=== PATIENT | female | born 1980 | race African-American/Black ===

== ENCOUNTER 2022-06-01 02:45 | Inpatient (IN) | payer MEDICAID, OTHER ==
[~2022-06-01] VITALS: Ht 167.6 cm; Wt 61.3 kg
[2022-06-01] MEDS ORDERED: ONDANSETRON HCL 4MG/2ML INJ IV STA (05:06)
[2022-06-01] MEDS ORDERED: MORPHINE SULFATE 4 MG/ML CPJ (NOT FOR IM USE) IV STA (05:06)
[2022-06-01] MEDS ORDERED: SODIUM CHLORIDE 0.9% 1,000 ML IV ONE (05:45)
[2022-06-01 06:25] LABS: BASOPHILS % 0.5 % (0.0-2.0); EOSINOPHILS % 0.4 % (0.0-5.0); HEMATOCRIT. 48.9 % (36.0-48.0); HEMOGLOBIN. 16.8 g/dL (12.0-16.0); LYMPHOCYTES % 29.8 % (20.0-50.0); MEAN CORPUSCULAR HEMOGLOBIN 34.6 pg (28.0-32.0); MEAN CORPUSCULAR VOLUME 100.5 fL (81.0-99.0); MEAN PLATELET VOLUME 9.2 fl (7.4-10.4); MONOCYTES % 10.7 % (2.0-8.0); NEUTROPHILS % 58.6 % (40.0-76.0); PLATELET 468 x1000/uL (130-400); RED BLOOD CELL COUNT 4.86 mill/uL (4.2-5.4); RED CELL DISTRIBUTION WIDTH 15.5 % (11.6-14.6)
[2022-06-01 06:33] LABS: CLARITY URINE CLOUDY (CLEAR); COLOR URINE DARK YELLOW (YELLOW); KETONES URINE 1+ (NEGATIVE); LEUKOCYTE ESTERASE URINE 1+ (NEGATIVE); NITRITE URINE NEGATIVE (NEGATIVE); OCCULT BLOOD URINE 2+ (NEGATIVE); PROTEIN URINE 2+ (NEGATIVE); SPECIFIC GRAVITY URINE 1.033 (1.005-1.030)
[2022-06-01 06:38] LABS: CHLORIDE 88 mEq/L (98-107); HCG SCREEN NEGATIVE
[2022-06-01] MEDS ORDERED: CEFTRIAXONE 1 G PREMIX 50 ML IV ONE (10:15)
[2022-06-01] MEDS ORDERED: POTASSIUM CHLORIDE INJ 40 MEQ in DEXT 5% WATER 250 ML IV ONE (12:15)
[2022-06-01] MEDS: KCL 20MEQ/100ML X 2 FOR TOTAL KCL 40MEQ/200ML IV SCH (12:27)
[2022-06-01] MEDS: SODIUM CHLORIDE 0.9% 1,000 ML IV SCH ×2 (12:28→20:15)
[2022-06-01] MEDS ORDERED: ACETAMINOPHEN 325MG TABLET PO PRN (12:45)
[2022-06-01] MEDS ORDERED: IPRATROPIUM/ALBUTEROL 0.5-3(2.5)MG/3ML NEB HHN PRN (12:45)
[2022-06-01] MEDS ORDERED: CLONIDINE 0.1MG TABLET PO PRN (12:45)
[2022-06-01] MEDS ORDERED: DIPHENHYDRAMINE 50MG/ML VIAL IV PRN (12:45)
[2022-06-01] MEDS ORDERED: ONDANSETRON HCL 4MG/2ML INJ IV PRN (12:45)
[2022-06-01] MEDS ORDERED: CEFTRIAXONE 1 G PREMIX 50 ML IV SCH (12:45)
[2022-06-01 15:05] VITALS: BP 109/74
[2022-06-01 15:14] LABS: PHOSPHORUS 3.1 mg/dL (2.5-4.9)
[2022-06-01 15:44] VITALS: BP 109/74
[2022-06-01] MEDS: MORPHINE SULFATE 2 MG/ML CPJ (NOT FOR IM USE) IV PRN ×2 (16:32→23:40)
[2022-06-01 20:00] VITALS: BP 139/79
[2022-06-01] MEDS ORDERED: NALOXONE HCL 0.4MG/ML VIAL IV PRN (20:00)
[2022-06-02] VITALS: BP 107/64
[2022-06-02 04:00] VITALS: BP 94/55
[2022-06-02] MEDS: SODIUM CHLORIDE 0.9% 1,000 ML IV SCH ×3 (04:15→21:00)
[2022-06-02 07:20] LABS: CHLORIDE 98 mEq/L (98-107)
[2022-06-02 07:24] LABS: HEMATOCRIT. 43.4 % (36.0-48.0); HEMOGLOBIN. 14.5 g/dL (12.0-16.0); MEAN CORPUSCULAR HEMOGLOBIN 33.9 pg (28.0-32.0); MEAN CORPUSCULAR VOLUME 101.7 fL (81.0-99.0); MEAN PLATELET VOLUME 8.9 fl (7.4-10.4); PLATELET 399 x1000/uL (130-400); RED BLOOD CELL COUNT 4.26 mill/uL (4.2-5.4); RED CELL DISTRIBUTION WIDTH 15.1 % (11.6-14.6)
[2022-06-02 08:00] VITALS: BP 116/71
[2022-06-02 10:56] LABS: PLATELET ESTIMATE NORMAL
[2022-06-02 12:00] VITALS: BP 119/76
[2022-06-02] MEDS ORDERED: KCL 20MEQ/100ML PREMIX 100 ML IV SCH (12:00)
[2022-06-02] MEDS ORDERED: LIDOCAINE HCL/PF 1% 10 MG/ML 5ML VIAL ONE (12:44)
[2022-06-02] MEDS: KCL 20MEQ/100ML X 2 FOR TOTAL KCL 40MEQ/200ML IV SCH (14:02)
[2022-06-02 16:00] VITALS: BP 101/63
[2022-06-02] MEDS: CEFTRIAXONE 1,000 MG in DEXTROSE 5% WATER 50 ML IV SCH (17:55)
[2022-06-02 20:00] VITALS: BP 115/76
[2022-06-03] VITALS: BP 105/67
[2022-06-03 04:00] VITALS: BP 115/78
[2022-06-03 07:09] LABS: BASOPHILS % 0.2 % (0.0-2.0); HEMATOCRIT. 33.4 % (36.0-48.0); HEMOGLOBIN. 11.5 g/dL (12.0-16.0); LYMPHOCYTES % 7.7 % (20.0-50.0); MEAN CORPUSCULAR HEMOGLOBIN 34.3 pg (28.0-32.0); MEAN CORPUSCULAR VOLUME 99.9 fL (81.0-99.0); MEAN PLATELET VOLUME 9.4 fl (7.4-10.4); NEUTROPHILS % 84.1 % (40.0-76.0); PLATELET 304 x1000/uL (130-400); RED BLOOD CELL COUNT 3.34 mill/uL (4.2-5.4); RED CELL DISTRIBUTION WIDTH 15.3 % (11.6-14.6)
[2022-06-03 08:00] VITALS: BP 117/78
[2022-06-03 08:05] LABS: CHLORIDE 99 mEq/L (98-107)
[2022-06-03 09:11] LABS: ANTI-NUCLEAR ANTIBODIES DIRECT Negative (Negative)
[2022-06-03] MEDS ORDERED: POTASSIUM CHLORIDE 20MEQ TABLET SR PO NR (10:15)
[2022-06-03] MEDS: SODIUM CHLORIDE 0.9% 1,000 ML IV SCH ×2 (11:05→20:45)
[2022-06-03 12:00] VITALS: BP 127/76
[2022-06-03 16:00] VITALS: BP 108/73
[2022-06-03] MEDS: CEFTRIAXONE 1,000 MG in DEXTROSE 5% WATER 50 ML IV SCH (18:06)
[2022-06-03 20:00] VITALS: BP 119/77
[2022-06-04] VITALS: BP 121/84
[2022-06-04 04:00] VITALS: BP 149/90
[2022-06-04] MEDS: SODIUM CHLORIDE 0.9% 1,000 ML IV SCH (04:17)
[2022-06-04 06:55] LABS: BASOPHILS % 0.4 % (0.0-2.0); EOSINOPHILS % 0.5 % (0.0-5.0); HEMATOCRIT. 31.1 % (36.0-48.0); HEMOGLOBIN. 10.5 g/dL (12.0-16.0); LYMPHOCYTES % 16.1 % (20.0-50.0); MEAN CORPUSCULAR VOLUME 101.1 fL (81.0-99.0); MEAN PLATELET VOLUME 9.7 fl (7.4-10.4); MONOCYTES % 6.5 % (2.0-8.0); NEUTROPHILS % 76.5 % (40.0-76.0); PLATELET 247 x1000/uL (130-400); RED BLOOD CELL COUNT 3.08 mill/uL (4.2-5.4); RED CELL DISTRIBUTION WIDTH 14.8 % (11.6-14.6)
[2022-06-04 07:59] LABS: CHLORIDE 103 mEq/L (98-107)
[2022-06-04 08:00] VITALS: BP 119/78
[2022-06-04 08:05] LABS: PHOSPHORUS 1.5 mg/dL (2.5-4.9)
[2022-06-04] MEDS ORDERED: POTASSIUM CHLORIDE 20MEQ TABLET SR PO NR (09:45)
[2022-06-04] MEDS ORDERED: SODIUM PHOS,M-BASIC-D-BASIC 30 MM in DEXT 5% WATER 500 ML IV NR (10:00)
[2022-06-04 12:00] VITALS: BP 126/89
[2022-06-04] MEDS ORDERED: LEVO500T90 MT (13:15)
[2022-06-04 16:00] VITALS: BP 129/83
[2022-06-04 17:18] VITALS: BP 129/83
== END 2022-06-04 20:50 | disposition home or self-care (01) | DRG 469 ==
LOC: ER 02:45 → 8WST 10:02 → EDBEDREQ 10:05 → ENRESERV 13:44
PROVIDERS: ADMIT Internal Medicine; ATTEND Internal Medicine
PROC: 02HV33Z Insertion of Infusion Device into Superior Vena Cava, Percutaneous Approach (ICD-10-PCS; principal; 2022-06-02)
PROC: B5181ZA Fluoroscopy of Superior Vena Cava using Low Osmolar Contrast, Guidance (ICD-10-PCS; 2022-06-02)
PROC: B548ZZA Ultrasonography of Superior Vena Cava, Guidance (ICD-10-PCS; 2022-06-02)
DX: N17.9 Acute kidney failure, unspecified (principal); K85.90 Acute pancreatitis without necrosis or infection, unspecified; E87.1 Hypo-osmolality and hyponatremia; Z20.822 Contact with and (suspected) exposure to COVID-19; N39.0 Urinary tract infection, site not specified; E87.6 Hypokalemia; E86.9 Volume depletion, unspecified; N20.0 Calculus of kidney; D72.825 Bandemia; F15.90 Other stimulant use, unspecified, uncomplicated
CPT/HCPCS: 36415; 36573; 74176; 80048; 80053; 81003; 82550; 83735; 84100; 84145; 84703; 85025; 86038; 86160; 87426; 93970; 99285; C1725; J0696; J2270; J2405; J3480; J3490; J7030; J7060

== ENCOUNTER 2024-02-15 18:57 | Emergency (ER) | payer MEDICAID ==
[~2024-02-15] VITALS: Ht 162.6 cm; Wt 68.0 kg
[~2024-02-15 18:57] MED LIST: LEVO-65 MT
[2024-02-15 19:55] VITALS: O2SAT 100
[2024-02-15 20:26] LABS: CLARITY URINE CLEAR (CLEAR); COLOR URINE YELLOW (YELLOW); GLUCOSE URINE NEGATIVE (NEGATIVE); KETONES URINE NEGATIVE (NEGATIVE); LEUKOCYTE ESTERASE URINE TRACE (NEGATIVE); NITRITE URINE NEGATIVE (NEGATIVE); OCCULT BLOOD URINE NEGATIVE (NEGATIVE); PROTEIN URINE NEGATIVE (NEGATIVE); SPECIFIC GRAVITY URINE 1.016 (1.005-1.030)
[2024-02-15 20:41] LABS: BACTERIA URINE TRACE; RBC URINE 0-2 /hpf (0-2); SQUAMOUS EPITHELIAL CELL URINE 1+ /lpf (RARE/1+); TRICHOMONAS URINE 1+
[2024-02-15 20:44] LABS: BASOPHILS % 0.3 % (0.0-2.0); DIFFERENTIAL COMMENT 0; EOSINOPHILS % 1.4 % (0.0-5.0); HEMATOCRIT. 30.8 % (36.0-48.0); HEMOGLOBIN. 10.4 g/dL (12.0-16.0); LYMPHOCYTES % 29.3 % (20.0-50.0); MEAN CORPUSCULAR HEMOGLOBIN 35.2 pg (28.0-32.0); MEAN CORPUSCULAR HGB CONC 33.8 g/dL (31.0-37.0); MEAN CORPUSCULAR VOLUME 104.4 fL (81.0-99.0); MEAN PLATELET VOLUME 8.5 fl (7.4-10.4); MONOCYTES % 7.8 % (2.0-8.0); NEUTROPHILS % 61.2 % (40.0-76.0); PLATELET 322 x1000/uL (130-400); RED BLOOD CELL COUNT 2.96 mill/uL (4.2-5.4); RED CELL DISTRIBUTION WIDTH 14.8 % (11.6-14.6); WHITE BLOOD COUNT 8.3 x1000/uL (4.5-11.0)
[2024-02-15 20:51] LABS: CARBON DIOXIDE 25 mEq/L (21-32); CHLORIDE 108 mEq/L (98-107); POTASSIUM 3.8 mEq/L (3.5-5.1); SODIUM 136 mEq/L (136-145)
[2024-02-15 20:52] LABS: CALCIUM 8.5 mg/dL (8.7-10.4)
[2024-02-15 20:56] LABS: CREATININE 0.7 mg/dL (0.6-1.0)
[2024-02-15 20:57] LABS: GLUCOSE 79 mg/dL (70-105); UREA NITROGEN BLOOD < 5 mg/dL (9-23)
[2024-02-15 20:58] LABS: ALANINE AMINOTRANSFERASE 13 IU/L (10-49)
[2024-02-15 20:59] LABS: ALBUMIN 3.7 g/dL (3.2-4.8); ASPARTATE AMINOTRANSFERASE 18 IU/L (<34); BILIRUBIN DIRECT 0.1 mg/dL (<=3.0); BILIRUBIN TOTAL 0.4 mg/dL (0.1-1.0); PROTEIN TOTAL 6.6 g/dL (6.0-8.3)
[2024-02-15 21:13] LABS: B-HCG QUANTITATIVE 7432 mIU/mL (<3)
[2024-02-15 23:31] LABS: *AMPHETAMINES SCREEN URINE PRESUMPTIVE POSITIVE (NEGATIVE); *BARBITURATES SCREEN URINE NEGATIVE (NEGATIVE); *BENZODIAZEPINES SCREEN URINE NEGATIVE (NEGATIVE); *COCAINE SCREEN URINE PRESUMPTIVE POSITIVE (NEGATIVE); CANNABINOID URINE SCREEN PRESUMPTIVE POSITIVE (NEGATIVE); ECSTASY MDMA SCREEN URINE NEGATIVE (NEGATIVE); METHADONE URINE SCREEN NEGATIVE (NEGATIVE); OPIATES URINE SCREEN PRESUMPTIVE POSITIVE (NEGATIVE); PHENCYCLIDINE URINE SCREEN PRESUMTIVE POSITIVE (NEGATIVE)
[2024-02-16] MEDS: ACETAMINOPHEN 500MG TABLET PO ONE (00:05)
[2024-02-16 01:40] VITALS: BP 109/76; PULSE 74; RESP 15; TEMP 97.6
== END 2024-02-16 01:48 | disposition home or self-care (01) ==
LOC: ER 18:57
DX: O35.19X0 Maternal care for (suspected) chromosomal abnormality in fetus, other chromosomal abnormality, not applicable or unspecified (principal); D64.9 Anemia, unspecified; Z3A.26 26 weeks gestation of pregnancy
CPT/HCPCS: 36415; 76805; 80048; 80076; 80305; 80320; 81003; 81025; 84702; 85025; 86850; 86900; 99284; G0480